=== PATIENT | male | born 1975 | race Caucasian/White ===

== ENCOUNTER 2020-08-17 13:34 | Outpatient (RCR) | payer OTHER, SELFPAY ==
[2013-05-13 21:44] VITALS: BMI 30.4
== END 2020-10-18 23:59 ==
LOC: IMMUN 13:34
PROVIDERS: PCP Internal Medicine; Visit Provider Family Medicine
DX: Z23 Encounter for immunization (principal)
CPT/HCPCS: 0001A; 0002A; 91300

== ENCOUNTER 2024-07-08 12:21 | Emergency (ER) | payer BC, SELFPAY ==
[2024-07-08] VITALS (7 sets, daily range): BP systolic 118–146; BP diastolic 76–95; PULSE 93–120; RESP 14–22; TEMP 36.6–37.1; O2SAT 95–98; BMI 29.5
--- NOTE | 2024-07-08 13:06 | EKG12_ITS ---
Test Reason : Blood Pressure : */* mmHG Vent. Rate : 109 BPM Atrial Rate : 109 BPM P-R Int : 132 ms QRS Dur : 84 ms QT Int : 322 ms P-R-T Axes : 45 38 53 degrees QTcB Int : 433 ms Sinus tachycardia Nonspecific ST abnormality Abnormal ECG Confirmed by Dmitry Baker [id number]), editor sound BAO MARQUIS ([id number]) on 07/09/2024 9:33:57 AM Referred By: Asif Galdamez Confirmed By: Dmitry Baker
--- NOTE | 2024-07-08 13:07 | EDS_ITS ---
HPI History of Present Illness Chief Complaint: Syncope Narrative Narrative: 49-year-old male who denies significant past medical history presents status post syncopal episode. He states that yesterday he felt well but this morning by 530, he started having multiple episodes of diarrhea. He is having watery stool, nonbloody, at least 5 episodes of not more according to his . He stayed home from work today, and just prior to arrival, he started feeling nauseated and was in the bathroom. He was kneeling over the toilet on the floor, and the next thing he knew he woke up and had vomited and had an episode of diarrhea as well. He denies any fevers or chills, no abdominal pain. He did sustain a laceration to the left side of his chin. He is unsure of his last tetanus immunization. He only had a syncopal episode for about 30 seconds according to his . She had heard something fall and a loud noise and realized that he had not dropped anything so she went upstairs and by the time that she had seen him in the bathroom, he was slowly awakening. He was groggy and minimally confused. He feels back to baseline now. [facility] Medical History Sciatic nerve pain Hypercholesteremia Vitamin D deficiency BPH (benign prostatic hyperplasia) Asthma Home Medications ?Medication ?Instructions ?Recorded ?Last Taken ?Type cholecalciferol (vitamin D3) 50 50 mcg PO DAILY Unknown History mcg (2,000 unit) capsule mecobalamin (vitamin B12) PO DAILY 07/08/24 Unknown Hi story rosuvastatin 10 mg tablet (Crestor) 10 mg PO DAILY Unknown History tadalafil 5 mg tablet (Cialis) 10 mg PO DAILY 07/08/24 Unknown History Allergy/AdvReac Type Severity Reaction Status Date / Time No Known Allergies Allergy Verified 07/08/24 12:27 Social History Smoking Status: Never smoker ROS ROS ED ROS Narrative Review of systems positive for nausea, vomiting, diarrhea, and 32nd syncopal episode. Denies any recent fever or chills. No abdominal pain. Denies other injury except skin laceration on chin. EXAM Physical Exam Narrative Exam Narrative: GCS 15. ABCs intact. PERRL, EOMI. Neck soft and supple without meningismus. Full range of motion without pain. Inspection of the left chin does reveal dried blood streaking of collapsed chin. Cardiovascular examination reveals a regular rate and rhythm. Lungs are clear to auscultation bilaterally. Abdomen soft and nontender with positive bowel sounds, no guarding or rebound. Neurological examination is nonfocal, nonlateralizing. He is awake, alert, and oriented x 4. Const Vital Signs: 07/08/24 12:27 07/08/24 12:35 07/08/24 12:35 Temperature 98.8 F 98.8 F Temperature Source Oral Oral Pulse Rate 93 93 Respiratory Rate 14 14 Respiratory Effort Normal Respiratory Pattern Normal Blood Pressure 123/85 H 123/85 H Blood Pressure Mean 97 97 Pulse Ox 97 97 Oxygen Delivery Method Room Air Room Air 07/08/24 13:22 07/08/24 14:03 07/08/24 15:01 Temperature Temperature Source Pulse Rate 105 H 110 H 120 H Respiratory Rate 19 H 15 21 H Respiratory Effort Respiratory Pattern Blood Pressure 127/80 H 146/95 H 124/76 H Blood Pressure Mean 95 112 92 Pulse Ox 98 97 97 Oxygen Delivery Method Room Air Room Air Room Air 07/08/24 16:30 07/08/24 16:32 Temperature 98 F Temperature Source Pulse Rate 104 H 104 H Respiratory Rate 22 H 22 H Respiratory Effort Respiratory Pattern Blood Pressure 118/79 118/79 Blood Pressure Mean 92 92 Pulse Ox 95 95 Oxygen Delivery Method MDM MDM MDM Narrative Medical decision making narrative: Differential diagnosis includes but not limited to vasovagal syncope versus intravascular volume depletion versus dehydration versus other electrolyte abnormality secondary to gastroenteritis. I do not feel he needs CT imaging of the brain, neck, or abdomen as he is having no pain. His wound will be cleansed to see if there is an underlying laceration that requires repair. Patient will be bolused normal saline 1 L intravenously. EKG will be obtained as a cause for cardiogenic syncope. I will check a CBC, CMP, and lipase as well. EKG obtained interpreted by myself independently as sinus tachycardia at 109 bpm without ectopy or acute ST changes. No STEMI. QTc normal at 433 ms. I reviewed his laboratory work and he has normal white count of 8.9 with hemoglobin 15.6, hematocrit 46.2, platelet count normal at 220. Sodium is normal at 138 potassium 4.5. BUN slightly elevated at 20 with creatinine 1.1. Glucose appropriately elevated at 135 with a normal anion gap of 11. ALT slightly elevated at 58 which I think is nonspecific. Lipase normal at 43. Patient does have a small laceration on his chin less than 1 cm. I discussed with him the risk of infection and scarring, and he would like 1 suture placed. See procedure note for detail. Additionally after suturing he states his throat was sore which may be secondary to his vomiting, but he states his throat feels thick like he has strep throat. He would like to be swabbed for strep as well as COVID, influenza, and RSV. I reviewed his swabs and they are negative for strep and for COVID, influenza and RSV. At this point he will be discharged to follow-up with his primary care provider. Return instructions reviewed. Disposition is discharged home in stable condition. History & Record Review Discussion w/independent historian: Patient and Family Lab Data Attestation: I reviewed the patient's lab results. Labs: Laboratory Results - last 24 hr 07/08/24 12:52 WBC 8.9 RBC 5.04 Hgb 15.6 Hct 46.2 MCV 91.7 MCH 31.0 MCHC 33.8 RDW Std Deviation 39.2 RDW Coeff of Suri 11.6 Plt Count 220 MPV 8.4 Immature Gran % (Auto) 0.300 Neut % (Auto) 89.4 H Lymph % (Auto) 4.2 L [place] % (Auto) 5.0 Eos % (Auto) 0.8 Baso % (Auto) 0.3 Absolute Neuts (auto) 7.9 H Absolute Lymphs (auto) 0.37 L Nucleated RBC % 0 Sodium 138 Potassium 4.5 Chloride Direct 101 Carbon Dioxide 25.6 Anion Gap 11 BUN 20 H Creatinine 1.1 Estim Creat Clear Calc 107.92 Est GFR (MDRD) Non-Af 79 BUN/Creatinine Ratio 17.4 Glucose 135 H Calcium 9.5 Total Bilirubin 0.47 AST 34 ALT 58 H Alkaline Phosphatase 68 Total Protein 7.3 Albumin 4.8 Globulin 2.5 Albumin/Globulin Ratio 1.9 Lipase 43 Procedures Lacerations Chin laceration: Length: 0.39 in Depth: Skin Shape: Linear Prep: Sterile Conditions Laceration repair: Irrigated, Lidocaine and Local Number of Sutures/[place]: 1 Suture Information: Ethilon, Simple and 5-0 Discharge Plan Triage Chief Complaint: Syncope ED Provider: Asif Galdamez Dx/Rx/DC Orders Clinical Impression: Syncope and collapse, Chin laceration, Nausea, vomiting, and diarrhea, Sore throat Instructions: ED Laceration, Chin, Suture or Tape, ED Diarrhea, Unknown Cause, ED Diet Vomiting Diarrhea, ED Fainting, Vagal Reaction Prescriptions: No Action rosuvastatin [Crestor] 10 mg tablet 10 mg PO DAILY tadalafil [Cialis] 5 mg tablet 10 mg PO DAILY Rx Instructions: administer approximately 30min before sexual activity; do not use more than 1 dose per 24hrs cholecalciferol (vitamin D3) 50 mcg (2,000 unit) capsule 50 mcg PO DAILY mecobalamin (vitamin B12) PO DAILY Primary Care Provider: Sara Babb Referrals: Sara Babb MD [Primary Care Provider] - 5 Days for suture removal Activity Restrictions/Additional Instructions: Have the sutures removed by your primary care provider in 5 days. Drink plenty of oral fluids. Return with new or worsening symptoms. Print Language: Telugu Disposition Disposition: Home, Self Care Discharge Date/Time: 07/08/24 16:39
[2024-07-08] MEDS: 0.9% Normal Saline (1000mL) 1,000 ML 1000 ML IV (13:20)
[2024-07-08 13:44] LABS: Absolute Lymphocyte Count 0.37 X10^3/uL (0.83-4.51); Absolute Neutrophil Count 7.9 X10^3/uL (2.0-7.7); Basophil# 0.03 X10^3/uL; Basophil% 0.3 % (0-1); Eosinophil# 0.07 X10^3/uL; Eosinophils% 0.8 % (0-5); Hematocrit 46.2 % (40-54); Hemoglobin 15.6 g/dL (13.0-16.5); Lymphocyte # 0.37 X10^3/ul (0.83-4.51); Lymphocyte % 4.2 % (19-41); Mean Corp Hgb Conc 33.8 g/dL (32-36); Mean Corpuscular Volume 91.7 fL (80-94); Mean Platelet Vol. 8.4 fl (6.2-12.0); Monocyte# 0.44 X10^3/uL; NRBC Flagged by Analyzer 0 % (0-5); Neutrophil # 7.92 X10^3/uL (2.7-7.7); Neutrophil % 89.4 % (47-70); POSITIVE DIFFERENTIAL YES; Platelet Count 220 K/mm3 (150-450); RBC Distribution Width CV 11.6 % (11.6-14.6); RBC Distribution Width SD 39.2 fl (35.1-43.9); Red Blood Count 5.04 M/mm3 (4.6-6.2); White Blood Count 8.9 K/mm3 (4.4-11.0)
[2024-07-08 14:17] LABS: ALB/GLOB Ratio 1.9 RATIO (0.9-2.4); AST(SGOT) 34 U/L (<=37); Alanine Aminotransfer ALT/SGPT 58 U/L (<=46); Albumin, Serum 4.8 g/dL (3.5-5.0); Alkaline Phosphatase 68 U/L (40-129); Anion Gap 11 (5-15); BUN 20 mg/dL (4-19); BUN/Creat Ratio 17.4 RATIO (10-20); Calcium 9.5 mg/dL (7.6-11.0); Carbon Dioxide 25.6 mmol/L (22.0-29.0); Chloride 101 mmol/L (96-108); Creatinine, Serum 1.1 mg/dL (0.8-1.3); EST Glomerular Filtration Rate 79 (>60); Estimated Creatinine Clearance 107.92 ml/min; Globulin 2.5 g/dL (2.2-4.2); Glucose 135 mg/dL (70-99); Lipase 43 U/L (13-75); Potassium 4.5 mmol/L (3.3-5.1); Protein, Total 7.3 g/dL (5.9-8.4); Sodium Level 138 mmol/L (133-145); Total Bilirubin 0.47 mg/dL (0.00-1.30)
[2024-07-08] MEDS: Lidocaine 1% (20 ml mdv) 20 ML Vial INFILT (14:35)
== END 2024-07-08 16:39 | disposition home or self-care (01) ==
PROVIDERS: Emergency Provider Emergency Medicine; PCP Internal Medicine; Referring Provider Emergency Medicine; Visit Provider Emergency Medicine
DX: R55 Syncope and collapse (principal); J02.9 Acute pharyngitis, unspecified; R19.7 Diarrhea, unspecified; S01.81XA Laceration without foreign body of other part of head, initial encounter; W19.XXXA Unspecified fall, initial encounter; R41.0 Disorientation, unspecified; R11.2 Nausea with vomiting, unspecified; E78.00 Pure hypercholesterolemia, unspecified
CPT/HCPCS: 12011; 80053; 83690; 85025; 87631; 87651; 90715; 93005; 96360; 99285; A4216

== ENCOUNTER → 2025-03-12 | Outpatient (CLI) | payer BC, SELFPAY ==
[2025-03-12 12:08] LABS: Red Blood Cells-Urine 0 SEEN /hpf (0-5); Squamous Epithelial Cells - UA 0 SEEN /hpf (0-5)
[2025-03-12 12:24] LABS: Hematocrit 45.7 % (40-54); Hemoglobin 15.3 g/dL (13.0-16.5); Immature Granulocytes Count 0.010 X10^3/uL (0.0-0.0); Mean Corp Hgb Conc 33.5 g/dL (32-36); Mean Corpuscular Volume 94.2 fL (80-94); Mean Platelet Vol. 8.8 fl (6.2-12.0); NRBC Flagged by Analyzer 0 % (0-5); Platelet Count 286 K/mm3 (150-450); RBC Distribution Width CV 11.4 % (11.6-14.6); RBC Distribution Width SD 39.4 fl (35.1-43.9); Red Blood Count 4.85 M/mm3 (4.6-6.2); White Blood Count 4.1 K/mm3 (4.4-11.0)
[2025-03-12 12:36] LABS: Color, Urine Yellow (Yellow); Glucose, Dipstick Normal (Normal); Ketone-Dipstick 5 mg/dl (Negative); Leukocyte Esterase-Dipstick Negative /ul (Negative); Nitrite-Dipstick Negative (Negative); Occult Blood-Urine Negative /ul (Negative); Protein-Dipstick 30 mg/dl (Negative); Specific Gravity, Urine 1.025 (1.002-1.030); Urine Bilirubin Dipstick Negative (Negative)
[2025-03-12 12:45] LABS: Mucous, Urine 2+ /hpf (<or=2+)
[2025-03-12 13:01] LABS: AST(SGOT) 33 U/L (<=37); Alanine Aminotransfer ALT/SGPT 54 U/L (<=46); Albumin, Serum 4.9 g/dL (3.5-5.0); Alkaline Phosphatase 74 U/L (40-129); Anion Gap 10 (5-15); BUN 23 mg/dL (4-19); BUN/Creat Ratio 21.4 RATIO (10-20); Calcium,Total 10.0 mg/dL (7.6-11.0); Carbon Dioxide 28.2 mmol/L (21.0-32.0); Chloride 103 mmol/L (98-108); Globulin 2.5 g/dL (2.2-4.2); Glucose 100 mg/dL (70-99); Potassium 5.0 mmol/L (3.3-5.1)
[2025-03-12 18:04] LABS: Creatinine, Urine (random) 408.00 mg/dL (39.00-259.00); Microalbumin,Random Urine 13.8 mg/L (<20 mg/L)
== END | disposition home or self-care (01) ==
LOC: LAB 11:57 → LABSPEC 11:58
PROVIDERS: PCP Internal Medicine; Referring Provider Internal Medicine; Visit Provider Internal Medicine
DX: R37 Sexual dysfunction, unspecified (principal); R79.89 Other specified abnormal findings of blood chemistry; E78.00 Pure hypercholesterolemia, unspecified
CPT/HCPCS: 80053; 81001; 82043; 82570; 85025

== ENCOUNTER → 2025-03-19 | Outpatient (CLI) | payer BC, SELFPAY ==
[2025-03-19 10:05] LABS: Hematocrit 43.2 % (40-54); Hemoglobin 15.1 g/dL (13.0-16.5); Immature Granulocytes Count 0.000 X10^3/uL (0.0-0.0); Mean Corp Hgb Conc 35.0 g/dL (32-36); Mean Corpuscular Volume 91.9 fL (80-94); Mean Platelet Vol. 8.7 fl (6.2-12.0); NRBC Flagged by Analyzer 0 % (0-5); Platelet Count 249 K/mm3 (150-450); RBC Distribution Width CV 11.5 % (11.6-14.6); RBC Distribution Width SD 38.8 fl (35.1-43.9); Red Blood Count 4.70 M/mm3 (4.6-6.2)
[2025-03-19 10:38] LABS: AST(SGOT) 32 U/L (<=37); Alanine Aminotransfer ALT/SGPT 46 U/L (<=46); Albumin, Serum 4.8 g/dL (3.5-5.0); Alkaline Phosphatase 70 U/L (40-129); Bilirubin, Direct 0.20 mg/dL (0.00-0.30); Follicle Stimulating Hormone 3.1 mIU/mL; Globulin 2.7 g/dL (2.2-4.2)
[2025-03-19 13:17] LABS: White Blood Count 3.6 K/mm3 (4.4-11.0)
== END | disposition home or self-care (01) ==
LOC: CIMLAB 09:02
PROVIDERS: PCP Internal Medicine; Referring Provider Internal Medicine; Visit Provider Internal Medicine
DX: E78.00 Pure hypercholesterolemia, unspecified (principal); R79.89 Other specified abnormal findings of blood chemistry; R37 Sexual dysfunction, unspecified
CPT/HCPCS: 36415; 80076; 83001; 83002; 84402; 85025

== ENCOUNTER → 2025-04-02 | Outpatient (CLI) | payer BC, SELFPAY ==
[2025-04-02 17:41] LABS: Hematocrit 43.9 % (40-54); Hemoglobin 14.9 g/dL (13.0-16.5); Immature Granulocytes Count 0.000 X10^3/uL (0.0-0.0); Mean Corp Hgb Conc 33.9 g/dL (32-36); Mean Corpuscular Volume 93.4 fL (80-94); Mean Platelet Vol. 8.7 fl (6.2-12.0); NRBC Flagged by Analyzer 0 % (0-5); Platelet Count 233 K/mm3 (150-450); RBC Distribution Width CV 11.4 % (11.6-14.6); RBC Distribution Width SD 39.1 fl (35.1-43.9); Red Blood Count 4.70 M/mm3 (4.6-6.2); White Blood Count 4.1 K/mm3 (4.4-11.0)
== END | disposition home or self-care (01) ==
LOC: LABSPEC 15:15
PROVIDERS: PCP Internal Medicine; Referring Provider Internal Medicine; Visit Provider Internal Medicine
DX: R79.89 Other specified abnormal findings of blood chemistry (principal)
CPT/HCPCS: 85025

== ENCOUNTER → 2025-04-09 | Outpatient (CLI) | payer BC, SELFPAY ==
--- OUTSIDE RECORDS SUMMARY | 2025-04-09 11:20 | XMS RPT_ITS | CCD ---
Author Organization [facility] Inform ion Partnership [facility] Care Team Providers Care [employer] Attorney Name Role Phone Sara Paniagua Unavailable Cold Strip Feeder, System Unavailable Unavailable MATTHEW Prince Unavailable Unavailable Holley MITCHELL, Sara Clark Primary Care Provider SARA PANIAGUA Referring Unavailable BONEZZI, SARA CLARK Primary Care Unavailable Bonezzi, Sara Primary Care Unavailable Reodica, Asif Referring Unavailable Reodica, Asif Attending Unavailable Bonezzi, Sara Attending Unavailable Bonezzi, Sara Primary Care Unavailable Bonezzi, Sara Referring Unavailable Bonezzi, Sara Primary Care Unavailable Bonezzi, Sara Referring Unavailable Bonezzi, Sara Attending Unavailable Allergies Allergy Classification Reported Allergen(s) Allergy Type Date of Onset Reaction(s) Facility (1 source) ALLERGIES NOT ON FILE; Translations: [ALLERGIES NOT ON FILE] Propensity to adverse reactions (disorder) [facility] 2 Repository Problems Active Problems Problem Classification Problem Date Documented Da te Episodic/Chronic Asthma (2 sources) Intrinsic asthma with status asthmaticus; Translations: [Asthma] 07-30-2006 Chronic Comment on above: child Diabetes mellitus without complication (1 source) Impaired fasting glucose; Translations: [Impaired fasting glucose] Onset: 03-12-2025 Episodic Disorders of lipid metabolism (9 sources) Hypercholesterolemi a; Translations: [Hypercholesteremia ] Onset: 08-26-2023 02-15-2015 Chronic Comment on above: want at goal Immunizations and screening for infectious disease (3 sources) Contact with and (suspected) exposure to other viral communicable diseases; Translations: [Exposure to the flu] 02-26-2020 Episodic Miscellaneous mental health disorders (1 source) Sexual dysfunction, unspecified; Translations: [Sexual dysfunction, unspecified] Onset: 03-19-2025 Episodic Other circulatory disease (1 source) Elevated blood-pressure reading, without diagnosis of hypertension; Translations: [Elevated blood-pressure reading, without diagnosis of hypertension] Onset: 03-12-2025 Episodic Other screening for suspected conditions (not mental disorders or infectious disease) (1 source) Other specified abnormal findings of blood chemistry; Translations: [Other specified abnormal findings of blood chemistry] Onset: 03-19-2025 Episodic Past or Other Problems Problem Classification Problem Date Documented Date Episodic/Chronic Influenza (1 source) Influenza Syncope (1 source) Syncope and collapse; Translations: [Syncope and collapse] Onset: Episodic Unclassified (4 sources) Unclassified (1 source) Patient encounter status; Translations: [Encounter for routine history and physical exam for male] 02-15-2015 Comment on above: handout for self kimberly t. exam Unclassified (2 sources) Hypercholesteremia (272.0) Unclassified (2 sources) Well Male Exam (V70.0) Results Test Name Value Interpretation Reference Range Facility Testosterone Freeon 03-21-20 TESTOSTER FREE 11.0 pg/mL Normal 7.2-24.0 [facility] Comment on above: Result Comment: Perf ormed at: - [facility] [id number] Spiral Winder: Marcin Chery MD, Phone: [phone] Performed By: #### L 100.0100, L501.2450, L500.4050 #### [facility] [address] [place], [place], [address] CBC W/Diff, Automatedon 11-0 PATH REV Reviewed Normal [facility] Comment on above: Order Comment: ADD ONDR. PANIAGUA WANTS THE WBC RECHECKED, SPECIMEN IS IN THE LAB Result Comment: LEUK OPENIA WITH ABSOLUTE NEUTROPENIA AND RELATIVE LYMPHOCYTOSIS. NO SIGNIFICANT CYTOLOGIC ATYPIA NOTED. NORMAL RED BLOOD CELLS. ADEQUATE PLATELETS. Yeimi Hilmlan MD 03/19/2025 AMENDED REPORT 03/19/25 1418 PATH REV previously reported as: September Performed By: #### L 100.0100, L501.2450, L500.4050 #### [facility] [address] [place], [address] FSH and LHon 03-19-2025 FSH 3.1 mIU/mL Normal [facility] Comment on above: Result Comment: FEMA LE: Follicular: 1.4 - 18.1 mIU/mL Midcycle: 3.4 - 33.4 mIU/mL Luteal: 1.5 - 9.1 mIU/mL Post Menopause: 23.0 - 116.3 mIU/mL MALE: 1.4 - 18.1 mIU/mL Performed By: #### L 100.0100, L501.2450, L500.4050 #### [facility] [address] [place], [place], [id number] LH 4.8 mIU/mL Normal [facility] Comment on above: Result Comment: FEMA LE: Follicular: 1.9-12.5 mIU/mL Midcycle: 8.7-76.3 mIU/mL Luteal: 0.5-16.9 mIU/mL Post Menopause: 15.9-54.0 mIU/mL MALE: 20-70 Years: 1.5-9.3 mIU/mL >70 Years: 3.1-34.6 mIU/mL Performed By: #### L 100.0100, L501.2450, L500.4050 #### [facility] [address] [place], [address] Liver Profileon 03-19-2025 Albumin [Mass/Vol] 4.8 g/dL Normal 3.5-5.0 [facility] Comment on above: Performed By: #### L 100.0100, L501.2450, L500.4050 #### [facility] [address] [place], [address] ALK PHOS 70 U/L Normal 40-129 [facility] Comment on above: Performed By: #### L 100.0100, L501.2450, L500.4050 #### [facility] [address] [place], [address] ALT [Catalytic activity/Vol] 46 U/L Normal <=46 [facility] Comment on above: Performed By: #### L 100.0100, L501.2450, L500.4050 #### [facility] [address] [place], [address] AST [Catalytic activity/Vol] 32 U/L Normal <=37 [facility] Comment on above: Performed By: #### L 100.0100, L501.2450, L500.4050 #### [facility] [address] [place], [address] Bilirubin [Mass/Vol] 0.44 mg/dL Normal 0.00-1.30 [facility] Comment on above: Performed By: #### L 100.0100, L501.2450, L500.4050 #### [facility] [address] [place], [address] Bilirubin.direct [Mass/Vol] 0.20 mg/dL Normal 0.00-0.30 [facility] Comment on above: Performed By: #### L 100.0100, L501.2450, L500.4050 #### [facility] [address] [place], [address] Globulin (S) [Mass/Vol] 2.7 g/dL Normal 2.2-4.2 [facility] Comment on above: Performed By: #### L 100.0100, L501.2450, L500.4050 #### [facility] [address] [place], [address] T PROT 7.5 g/dL Normal 5.9-8.4 [facility] Comment on above: Performed By: #### L 100.0100, L501.2450, L500.4050 #### [facility] [address] [place], [address] CBC W/Diff, Automatedon 10-3 -2024 Absolute Lymph 1.97 X10 3/uL Normal 0.83-4.51 [facility] Comment on above: Performed By: #### L 100.0100, L400.0001, L502.0250, L500.4050 #### [facility] [address] [place], [address] Absolute Neut 1.6 X10 3/uL Low 2.0-7.7 [facility] Comment on above: Performed By: #### L 100.0100, L400.0001, L502.0250, L500.4050 #### [facility] [address] [place], [address] Basophils/100 WBC (Bld) 0.7 % Normal 0-1 [facility] Comment on above: Performed By: #### L 100.0100, L400.0001, L502.0250, L500.4050 #### [facility] [address] [place], [address] Eosinophils/100 WBC (Bld) 3.4 % Normal 0-5 [facility] Comment on above: Performed By: #### L 100.0100, L400.0001, L502.0250, L500.4050 #### [facility] [address] [place], [address] Erythrocyte distribution width (RBC) [Ratio] 11.4 % Low 11.6-14.6 [facility] Comment on above: Performed By: #### L 100.0100, L400.0001, L502.0250, L500.4050 #### [facility] [address] [place], [address] Hematocrit (Bld) [Volume fraction] 45.7 % Normal 40-54 [facility] Comment on above: Performed By: #### L 100.0100, L400.0001, L502.0250, L500.4050 #### [facility] [address] [place], [address] Hemoglobin (Bld) [Mass/Vol] 15.3 g/dL Normal 13.0-16.5 [facility] Comment on above: Performed By: #### L 100.0100, L400.0001, L502.0250, L500.4050 #### [facility] [address] [place], [address] IG% 0.200 Normal 0.0-0.9 [facility] Comment on above: Result Comment: IG% - Immature Granulocytes (promyelocytes, myelocytes and metamyelocytes) > 1% indicates that a LEFT SHIFT is Present. Performed By: #### L 100.0100, L400.0001, L502.0250, L500.4050 #### [facility] [address] [place], [address] Lymphocytes/100 WBC (Bld) 47.9 % High 19-41 [facility] Comment on above: Performed By: #### L 100.0100, L400.0001, L502.0250, L500.4050 #### [facility] [address] [place], [address] MCH (RBC) [Entitic mass] 31.5 pg Normal 27.0-32.0 [facility] Comment on above: Performed By: #### L 100.0100, L400.0001, L502.0250, L500.4050 #### [facility] [address] [place], [address] MCHC (RBC) [Mass/Vol] 33.5 g/dL Normal 32-36 [facility] Comment on above: Performed By: #### L 100.0100, L400.0001, L502.0250, L500.4050 #### [facility] [address] [place], [address] MCV (RBC) [Entitic vol] 94.2 fL High 80-94 [facility] Comment on above: Performed By: #### L 100.0100, L400.0001, L502.0250, L500.4050 #### [facility] [address] [place], [address] Monocytes/100 WBC (Bld) 8.8 % Normal 0-10 [facility] Comment on above: Performed By: #### L 100.0100, L400.0001, L502.0250, L500.4050 #### [facility] [address] [place], [address] Neutrophils/100 WBC (Bld) 39.0 % Low 47-70 [facility] Comment on above: Performed By: #### L 100.0100, L400.0001, L502.0250, L500.4050 #### [facility] [address] [place], [address] Nucleated RBC (Bld) [#/Vol] 0 10*3/uL Normal 0-5 [facility] Comment on above: Performed By: #### L 100.0100, L400.0001, L502.0250, L500.4050 #### [facility] [address] [place], [address] Platelet mean volume (Bld) [Entitic vol] 8.8 fL Normal 6.2-12.0 [facility] Comment on above: Performed By: #### L 100.0100, L400.0001, L502.0250, L500.4050 #### [facility] [address] [place], [address] Platelets (Bld) [#/Vol] 286 10*3/uL Normal 150-450 [facility] Comment on above: Performed By: #### L 100.0100, L400.0001, L502.0250, L500.4050 #### [facility] [address] [place], [address] RBC (Bld) [#/Vol] 4.85 10*6/uL Normal 4.6-6.2 [facility] Comment on above: Performed By: #### L 100.0100, L400.0001, L502.0250, L500.4050 #### [facility] [address] [place], [address] RDW SD 39.4 fl Normal 35.1-43.9 [facility] Comment on above: Performed By: #### L 100.0100, L400.0001, L502.0250, L500.4050 #### [facility] [address] [place], [address] WBC (Bld) [#/Vol] 4.1 10*3/uL Low 4.4-11.0 [facility] Comment on above: Performed By: #### L 100.0100, L400.0001, L502.0250, L500.4050 #### [facility] [address] [place], [address] Comprehensive Metabolic Prof [facility] 03-12-2025 Albumin [Mass/Vol] 4.9 g/dL Normal 3.5-5.0 [facility] Comment on above: Performed By: #### L 100.0100, L400.0001, L502.0250, L500.4050 #### [facility] [address] [place], [address] Albumin/Globulin [Mass ratio] 2.0 {ratio} Normal 0.9-2.4 [facility] Comment on above: Performed By: #### L 100.0100, L400.0001, L502.0250, L500.4050 #### [facility] [address] [place], [address] ALK PHOS 74 U/L Normal 40-129 [facility] Comment on above: Performed By: #### L 100.0100, L400.0001, L502.0250, L500.4050 #### [facility] [address] [place], [address] ALT [Catalytic activity/Vol] 54 U/L High <=46 [facility] Comment on above: Performed By: #### L 100.0100, L400.0001, L502.0250, L500.4050 #### [facility] [address] [place], [address] AST [Catalytic activity/Vol] 33 U/L Normal <=37 [facility] Comment on above: Performed By: #### L 100.0100, L400.0001, L502.0250, L500.4050 #### [facility] [address] [place], [address] Bilirubin [Mass/Vol] 0.45 mg/dL Normal 0.00-1.30 [facility] Comment on above: Performed By: #### L 100.0100, L400.0001, L502.0250, L500.4050 #### [facility] [address] [place], [address] BUN/CRE 21.4 RATIO High 10-20 [facility] Comment on above: Performed By: #### L 100.0100, L400.0001, L502.0250, L500.4050 #### [facility] [address] [place], [address] Calcium [Mass/Vol] 10.0 mg/dL Normal 7.6-11.0 [facility] Comment on above: Performed By: #### L 100.0100, L400.0001, L502.0250, L500.4050 #### [facility] [address] [place], [address] Chloride [Moles/Vol] 103 mmol/L Normal 98-108 [facility] Comment on above: Performed By: #### L 100.0100, L400.0001, L502.0250, L500.4050 #### [facility] [address] [place], [address] CO2 [Moles/Vol] 28.2 mmol/L Normal 21.0-32.0 [facility] Comment on above: Performed By: #### L 100.0100, L400.0001, L502.0250, L500.4050 #### [facility] [address] [place], [address] Creatinine [Mass/Vol] 1.05 mg/dL Normal 0.70-1.20 [facility] Comment on above: Performed By: #### L 100.0100, L400.0001, L502.0250, L500.4050 #### [facility] [address] [place], [address] GAP 10 Normal 5-15 [facility] Comment on above: Performed By: #### L 100.0100, L400.0001, L502.0250, L500.4050 #### [facility] [address] [place], [address] GFR/1.73 sq M.predicted among non-blacks MDRD (S/P/Bld) [Vol rate/Area] 86 mL/min/{1.73_m2} Normal >60 [facility] Comment on above: Result Comment: mL/m in/1.73m2 CKD-EPI Creatinine Equation (2020) Performed By: #### L 100.0100, L400.0001, L502.0250, L500.4050 #### [facility] [address] [place], [address] Globulin (S) [Mass/Vol] 2.5 g/dL Normal 2.2-4.2 [facility] Comment on above: Performed By: #### L 100.0100, L400.0001, L502.0250, L500.4050 #### [facility] [address] [place], [address] Glucose [Mass/Vol] 100 mg/dL High 70-99 [facility] Comment on above: Performed By: #### L 100.0100, L400.0001, L502.0250, L500.4050 #### [facility] [address] [place], [address] Potassium [Moles/Vol] 5.0 mmol/L Normal 3.3-5.1 [facility] Comment on above: Performed By: #### L 100.0100, L400.0001, L502.0250, L500.4050 #### [facility] [address] [place], [address] Sodium [Moles/Vol] 141 mmol/L Normal 133-145 [facility] Comment on above: Performed By: #### L 100.0100, L400.0001, L502.0250, L500.4050 #### [facility] [address] [place], [address] T PROT 7.4 g/dL Normal 5.9-8.4 [facility] Comment on above: Performed By: #### L 100.0100, L400.0001, L502.0250, L500.4050 #### [facility] [address] [place], [address] Urea nitrogen [Mass/Vol] 23 mg/dL High 4-19 [facility] Comment on above: Performed By: #### L 100.0100, L400.0001, L502.0250, L500.4050 #### [facility] [address] [place], [address] Microalb:Creat Ratio,Random URon 03-12-2025 Creatinine [Mass/Vol] 408.00 mg/dL High 39.00-259.0 0 [facility] Comment on above: Performed By: #### L 100.0100, L501.2450, L500.4050 #### [facility] [address] [place], [address] MALB:CREAT 3.4 mg/g CRE Normal <30 mg/g CRE [facility] Comment on above: Performed By: #### L 100.0100, L501.2450, L500.4050 #### [facility] [address] [place], [address] MICROALBUMIN,UR 13.8 mg/L Normal <20 mg/L [facility] Comment on above: Performed By: #### L 100.0100, L501.2450, L500.4050 #### [facility] [address] [place], [address] Urinalysis, Completeon 03-12 Mucus Ql (Urine sed) 2+ /hpf Normal [facility] Comment on above: Order Comment: Urine , Random Performed By: #### L 100.0100, L400.0001, L502.0250, L500.4050 #### [facility] [address] [place], [address] BACTERIA 0 SEEN Normal None Seen [facility] Comment on above: Order Comment: Urine , Random Performed By: #### L 100.0100, L400.0001, L502.0250, L500.4050 #### [facility] [address] [place], [address] EPI,SQUAMOUS 0 SEEN Normal 0-5 [facility] Comment on above: Order Comment: Urine , Random Performed By: #### L 100.0100, L400.0001, L502.0250, L500.4050 #### [facility] [address] [place], [address] RBC 0 SEEN Normal 0-5 [facility] Comment on above: Order Comment: Urine , Random Performed By: #### L 100.0100, L400.0001, L502.0250, L500.4050 #### [facility] [address] [place], [address] WBC 0 SEEN Normal 0-5 [facility] Comment on above: Order Comment: Urine , Random Performed By: #### L 100.0100, L400.0001, L502.0250, L500.4050 #### [facility] [address] [place], [address] 12 Lead EKGon 2024 [address] [facility] [address] [facility] [place] [address] 12 Lead EKG 07/08/24 1316 MR#: [id number] Acct: [id number] Name: MARY VALENCIA Rep #: [id number] : 1975 49 From: Dmitry Baker MD Attending Dr: Status: DEP ER Ordering Dr: Asif Galdamez MD Date: 07/08/24 Location: ED Sex: M C Admitted: Test Reason : Blood Pressure : */* mmHG Vent. Rate : 109 BPM Atrial Rate : 109 BPM P-R Int : 132 ms QRS Dur : 84 ms QT Int : 322 ms P-R-T Axes : 45 38 53 degrees QTcB Int : 433 ms Sinus tachycardia Nonspecific ST abnormality Abnormal ECG Confirmed by Dmitry Baker ([id number]), managing editor BAO MARQUIS ([id number]) on 07/09/2024 9:33:57 AM Referred By: Asif Galdamez Confirmed By: Dmitry Baker 07/09/24 0933 Date Dmitry Baker MD CC: Dr. Asif Galdamez MD; Dr. Sara Paniagua MD Signed Normal [facility] CBC W/Diff, Automatedon 02-2 Absolute Lymph 0.37 X10 3/uL Low 0.83-4.51 [facility] Comment on above: Performed By: #### L 100.0100, L501.2450, L500.4050 #### [facility] [address] [place], [address] Absolute Neut 7.9 X10 3/uL High 2.0-7.7 [facility] Comment on above: Performed By: #### L 100.0100, L501.2450, L500.4050 #### [facility] [address] [place], [address] Basophils/100 WBC (Bld) 0.3 % Normal 0-1 [facility] Comment on above: Performed By: #### L 100.0100, L501.2450, L500.4050 #### [facility] [address] [place], [address] Eosinophils/100 WBC (Bld) 0.8 % Normal 0-5 [facility] Comment on above: Performed By: #### L 100.0100, L501.2450, L500.4050 #### [facility] [address] [place], [address] Erythrocyte distribution width (RBC) [Ratio] 11.6 % Normal 11.6-14.6 [facility] Comment on above: Performed By: #### L 100.0100, L501.2450, L500.4050 #### [facility] [address] [place], [address] Hematocrit (Bld) [Volume fraction] 46.2 % Normal 40-54 [facility] Comment on above: Performed By: #### L 100.0100, L501.2450, L500.4050 #### [facility] [address] [place], [address] Hemoglobin (Bld) [Mass/Vol] 15.6 g/dL Normal 13.0-16.5 [facility] Comment on above: Performed By: #### L 100.0100, L501.2450, L500.4050 #### [facility] [address] [place], [address] IG% 0.300 Normal 0.0-0.9 [facility] Comment on above: Result Comment: IG% - Immature Granulocytes (promyelocytes, myelocytes and metamyelocytes) > 1% indicates that a LEFT SHIFT is Present. Performed By: #### L 100.0100, L501.2450, L500.4050 #### [facility] [address] [place], [address] Lymphocytes/100 WBC (Bld) 4.2 % Low 19-41 [facility] Comment on above: Performed By: #### L 100.0100, L501.2450, L500.4050 #### [facility] [address] [place], [address] MCH (RBC) [Entitic mass] 31.0 pg Normal 27.0-32.0 [facility] Comment on above: Performed By: #### L 100.0100, L501.2450, L500.4050 #### [facility] [address] [place], [address] MCHC (RBC) [Mass/Vol] 33.8 g/dL Normal 32-36 [facility] Comment on above: Performed By: #### L 100.0100, L501.2450, L500.4050 #### [facility] [address] [place], [address] MCV (RBC) [Entitic vol] 91.7 fL Normal 80-94 [facility] Comment on above: Performed By: #### L 100.0100, L501.2450, L500.4050 #### [facility] [address] [place], [address] Monocytes/100 WBC (Bld) 5.0 % Normal 0-10 [facility] Comment on above: Performed By: #### L 100.0100, L501.2450, L500.4050 #### [facility] [address] [place], [address] Neutrophils/100 WBC (Bld) 89.4 % High 47-70 [facility] Comment on above: Performed By: #### L 100.0100, L501.2450, L500.4050 #### [facility] [address] [place], [address] Nucleated RBC (Bld) [#/Vol] 0 10*3/uL Normal 0-5 [facility] Comment on above: Performed By: #### L 100.0100, L501.2450, L500.4050 #### [facility] [address] [place], [address] Platelet mean volume (Bld) [Entitic vol] 8.4 fL Normal 6.2-12.0 [facility] [facility] Comment on above: Performed By: #### L 100.0100, L501.2450, L500.4050 #### [facility] [address] [place], [address] Platelets (Bld) [#/Vol] 220 10*3/uL Normal 150-450 [facility] Comment on above: Performed By: #### L 100.0100, L501.2450, L500.4050 #### [facility] [address] [place], [address] RBC (Bld) [#/Vol] 5.04 10*6/uL Normal 4.6-6.2 [facility] Comment on above: Performed By: #### L 100.0100, L501.2450, L500.4050 #### [facility] [address] [place], [address] RDW SD 39.2 fl Normal 35.1-43.9 [facility] Comment on above: Performed By: #### L 100.0100, L501.2450, L500.4050 #### [facility] [address] [place], [address] WBC (Bld) [#/Vol] 8.9 10*3/uL Normal 4.4-11.0 [facility] Comment on above: Performed By: #### L 100.0100, L501.2450, L500.4050 #### [facility] [address] [place], [address] Comprehensive Metabolic Prof ilon 2024 Albumin [Mass/Vol] 4.8 g/dL Normal 3.5-5.0 [facility] Comment on above: Performed By: #### L 100.0100, L501.2450, L500.4050 #### [facility] [address] [place], [address] Albumin/Globulin [Mass ratio] 1.9 {ratio} Normal 0.9-2.4 [facility] Comment on above: Performed By: #### L 100.0100, L501.2450, L500.4050 #### [facility] [address] [place], [address] ALK PHOS 68 U/L Normal 40-129 [facility] Comment on above: Performed By: #### L 100.0100, L501.2450, L500.4050 #### [facility] [address] [place], [address] ALT [Catalytic activity/Vol] 58 U/L High <=46 [facility] Comment on above: Performed By: #### L 100.0100, L501.2450, L500.4050 #### [facility] [address] [place], [address] Anion gap [Moles/Vol] 11 mmol/L Normal 5-15 [facility] Comment on above: Performed By: #### L 100.0100, L501.2450, L500.4050 #### [facility] [address] [place], [address] AST [Catalytic activity/Vol] 34 U/L Normal <=37 [facility] Comment on above: Performed By: #### L 100.0100, L501.2450, L500.4050 #### [facility] [address] [place], [address] Bilirubin [Mass/Vol] 0.47 mg/dL Normal 0.00-1.30 [facility] Comment on above: Performed By: #### L 100.0100, L501.2450, L500.4050 #### [facility] [address] [place], [address] BUN/CRE 17.4 RATIO Normal 10-20 [facility] Comment on above: Performed By: #### L 100.0100, L501.2450, L500.4050 #### [facility] [address] [place], [address] Calcium [Mass/Vol] 9.5 mg/dL Normal 7.6-11.0 [facility] Comment on above: Performed By: #### L 100.0100, L501.2450, L500.4050 #### [facility] [address] [place], [address] Chloride [Moles/Vol] 101 mmol/L Normal 96-108 [facility] Comment on above: Performed By: #### L 100.0100, L501.2450, L500.4050 #### [facility] [address] [place], [address] CO2 [Moles/Vol] 25.6 mmol/L Normal 22.0-29.0 [facility] Comment on above: Performed By: #### L 100.0100, L501.2450, L500.4050 #### [facility] [address] [place], [address] Creatinine [Mass/Vol] 1.1 mg/dL Normal 0.8-1.3 [facility] Comment on above: Performed By: #### L 100.0100, L501.2450, L500.4050 #### [facility] [address] [place], [address] ECRCL 107.92 ml/min Normal [facility] Comment on above: Performed By: #### L 100.0100, L501.2450, L500.4050 #### [facility] [address] [place], [address] GFR/1.73 sq M.predicted among non-blacks MDRD (S/P/Bld) [Vol rate/Area] 79 mL/min/{1.73_m2} Normal >60 [facility] Comment on above: Result Comment: mL/m in/1.73m2 CKD-EPI Creatinine Equation (2020) Performed By: #### L 100.0100, L501.2450, L500.4050 #### [facility] [address] [place], [address] Globulin (S) [Mass/Vol] 2.5 g/dL Normal 2.2-4.2 [facility] Comment on above: Performed By: #### L 100.0100, L501.2450, L500.4050 #### [facility] [address] [place], [address] Glucose [Mass/Vol] 135 mg/dL High 70-99 [facility] Comment on above: Performed By: #### L 100.0100, L501.2450, L500.4050 #### [facility] [address] [place], [address] Potassium [Moles/Vol] 4.5 mmol/L Normal 3.3-5.1 [facility] Comment on above: Performed By: #### L 100.0100, L501.2450, L500.4050 #### [facility] [address] [place], [address] Sodium [Moles/Vol] 138 mmol/L Normal 133-145 [facility] Comment on above: Performed By: #### L 100.0100, L501.2450, L500.4050 #### [facility] [address] [place], [address] T PROT 7.3 g/dL Normal 5.9-8.4 [facility] Comment on above: Performed By: #### L 100.0100, L501.2450, L500.4050 #### [facility] [address] [place], [address] Urea nitrogen [Mass/Vol] 20 mg/dL High 4-19 [facility] Comment on above: Performed By: #### L 100.0100, L501.2450, L500.4050 #### [facility] [address] [place], [address] Emergency Department Summary on 2024 Emergency Department Summary [facility] Medical Records Department [address] [place] [address] Emergency Department Summary 07/08/24 MR#: [id number] Acct: [id number] Name: MARY VALENCIA Rep #: [id number] : 1975 49 From: Asif Galdamez MD PCP: Dr. Sara Paniagua MD Status:DEP ER Location: ED HPI History of Present Illness Chief Complaint: Syncope Narrative Narrative: 49-year-old male who denies significant past medical history presents status post syncopal episode. He states that yesterday he felt well but this morning by 530, he started having multiple episodes of diarrhea. He is having watery stool, nonbloody, at least 5 episodes of not more according to his . He stayed home from work today, and just prior to arrival, he started feeling nauseated and was in the bathroom. He was kneeling over the toilet on the floor, and the next thing he knew he woke up and had vomited and had an episode of diarrhea as well. He denies any fevers or chills, no abdominal pain. He did sustain a laceration to the left side of his chin. He is unsure of his last tetanus immunization. He only had a syncopal episode for about 30 seconds according to his . She had heard something fall and a loud noise and realized that he had not dropped anything so she went upstairs and by the time that she had seen him in the bathroom, he was slowly awakening. He was groggy and minimally confused. He feels back to baseline now. [facility] Medical History Sciatic nerve pain Hypercholesteremia Vitamin D deficiency BPH (benign prostatic hyperplasia) Asthma Home Medications ???Medication ???Instructions ???Recorded ???Last Taken ???Type cholecalciferol (vitamin D3) 50 50 mcg PO DAILY 07/08/24 Unknown H istory mcg (2,000 unit) capsule mecobalamin (vitamin B12) PO DAILY 07/08/24 Unknown History rosuvastatin 10 mg tablet (Crestor) 10 mg PO DAILY 07/08/24 Unknown History tadalafil 5 mg tablet (Cialis) 10 mg PO DAILY 07/08/24 Unknown Hi story Allergy/AdvReac Type Severity Reaction Status Date / Time No Known Allergies Allergy Verified 07/08/24 12:27 Social History Smoking Status: Never smoker ROS ROS ED ROS Narrative Review of systems positive for nausea, vomiting, diarrhea, and 32nd syncopal episode. Denies any recent fever or chills. No abdominal pain. Denies other injury except skin laceration on chin. EXAM Physical Exam Narrative Exam Narrative: GCS 15. ABCs intact. PERRL, EOMI. Neck soft and supple without meningismus. Full range of motion without pain. Inspection of the left chin does reveal dried blood streaking of collapsed chin. Cardiovascular examination reveals a regular rate and rhythm. Lungs are clear to auscultation bilaterally. Abdomen soft and nontender with positive bowel sounds, no guarding or rebound. Neurological examination is nonfocal, nonlateralizing. He is awake, alert, and oriented x 4. Const Vital Signs: 07/08/24 12:27 07/08/24 12:35 07/08/24 12:35 Temperature 98.8 F 98.8 F Temperature Source Oral Oral Pulse Rate 93 93 Respiratory Rate 14 14 Respiratory Effort Normal Respiratory Pattern Normal Blood Pressure 123/85 H 123/85 H Blood Pressure Mean 97 97 Pulse Ox 97 97 Oxygen Delivery Method Room Air Room Air 07/08/24 13:22 07/08/24 14:03 07/08/24 15:01 Temperature Temperature Source Pulse Rate 105 H 110 H 120 H Respiratory Rate 19 H 15 21 H Respiratory Effort Respiratory Pattern Blood Pressure 127/80 H 146/95 H 124/76 H Blood Pressure Mean 95 112 92 Pulse Ox 98 97 97 Oxygen Delivery Method Room Air Room Air Room Air 07/08/24 16:30 07/08/24 16:32 Temperature 98 F Temperature Source Pulse Rate 104 H 104 H Respiratory Rate 22 H 22 H Respiratory Effort Respiratory Pattern Blood Pressure 118/79 118/79 Blood Pressure Mean 92 92 Pulse Ox 95 95 Oxygen Delivery Method MDM MDM MDM Narrative Medical decision making narrative: Differential diagnosis includes but not limited to vasovagal syncope versus intravascular volume depletion versus dehydration versus other electrolyte abnormality secondary to gastroenteritis. I do not feel he needs CT imaging of the brain, neck, or abdomen as he is having no pain. His wound will be cleansed to see if there is an underlying laceration that requires repair. Patient will be bolused normal saline 1 L intravenously. EKG will be obtained as a cause for cardiogenic syncope. I will check a CBC, CMP, and lipase as well. EKG obtained interpreted by myself independently as sinus tachycardia at 109 bpm without ectopy or acute ST changes. No STEMI. QTc normal at 433 ms. I reviewed his laboratory work and he law (more content not included)... Normal [facility] Lipaseon 2024 Lipase [Catalytic activity/Vol] 43 U/L Normal 13-75 [facility] Comment on above: Result Comment: Avery nava note: LIPASE revised reference range effective 22. New Lipase methodology. Expected to produce lower values than the previous assay method. NEW Reference Range: 13 - 75 U/L Performed By: #### L 100.0100, L501.2450, L500.4050 #### [facility] [address] [place], [address] M100.677on 2024 M100.677 Negative Normal [facility] Comment on above: Performed By: #### M 100.678, M100.677 #### [facility] [address] [place], [address] M100.678on 2024 M100.678 SARS-CoV-2 (COVID 19 ) Negative INFLUENZA A Negative INFLUENZA B Negative RSV PCR Negative Normal [facility] Comment on above: Performed By: #### M 100.678, M100.677 #### [facility] [address] [place], [address] CT CARDIAC SCORING WO IV CON TRASTon 08-26-2023 CT CARDIAC SCORING WO IV CONTRAST Interpreted By: Isauro Saenz, STUDY: CT CARDIAC SCORING WO IV CONTRAST; 08/26/2023 2:20 pm INDICATION: Signs/Symptoms:HYPERCHOLESTE REMIA. COMPARISON: None. ACCESSION NUMBER(S): [id number] ORDERING CLINICIAN: SARA PANIAGUA TECHNIQUE: Using prospective ECG gating, limited CT scan of the chest for evaluation of coronary arteries was performed without intravenous contrast. Coronary calcium scoring was performed according to the method of Agatston. FINDINGS: The score and distribution of calcium in the coronary arteries is as follows: LM: 0. LAD: 0. LCx: 0. RCA: 0. Total: 0. The visualized segments of the lungs are normally expanded. The visualized mid/lower ascending thoracic aorta measures 3.5 cm in diameter. The heart is normal in size. Trace pericardial effusion is present. No gross evidence of mediastinal or hilar lymphadenopathy is identified. Small hypodensity at the hepatic dome too small to characterize but likely benign. IMPRESSION: 1. Coronary artery calcium score of 0*. 2. Additional findings as above. *Coronary artery calcium scoring may be helpful in predicting the risk for future coronary heart disease events. According to the [place] [employer] Clinical Expert Consensus Task Force, such testing provides important prognostic information in patients with more than one coronary heart disease risk factor. The coronary artery calcium score correlates with the annual risk of a non-fatal myocardial infarction or coronary heart disease . Coronary artery score Annual Risk 0-99 0.4% 100-399 1.3% >400 2.4% These three breakpoints correspond to lower, intermediate and high risk states for future coronary events. Such information should be used, along with appropriate clinical judgment, to make decisions regarding the intensity of risk factor management strategies to treat blood lipids and to modify other non-lipid coronary risk factors. Reference: [place] P et al. Circulation. 2007; 115:402-426 MACRO: None Signed by: Isauro Saenz 08/26/2023 5:34 PM Dictation workstation: [id number] [facility] CT for calcium scoring WO co ntrast and CTA W contrast IV Heart and coronary arterieson 08-26-2023 1. Coronary artery c alcium score of 0*. 2. Additional findings as above. *Coronary artery calcium scoring may be helpful in predicting the risk for future coronary heart disease events. According to the [place] [employer] Clinical Expert Consensus Task Force, such testing provides important prognostic information in patients with more than one coronary heart disease risk factor. The coronary artery calcium score correlates with the annual risk of a non-fatal myocardial infarction or coronary heart disease . Coronary artery score Annual Risk 0-99 0.4% 100-399 1.3% >400 2.4% These three breakpoints correspond to lower, intermediate and high risk states for future coronary events. Such information should be used, along with appropriate clinical judgment, to make decisions regarding the intensity of risk factor management strategies to treat blood lipids and to modify other non-lipid coronary risk factors. Reference: [place] P et al. Circulation. 2007; 115:402-426 MACRO: None Signed by: Isauro Saenz 08/26/2023 5:34 PM Dictation workstation: [id number] [facility] Interpreted By: Isauro Carson, STUDY: CT CARDIAC SCORING WO IV CONTRAST; 08/26/2023 2:20 pm INDICATION: Signs/Symptoms:HYPERCHOLESTE REMIA. COMPARISON: None. ACCESSION NUMBER(S): [id number] ORDERING CLINICIAN: SARA PANIAGUA TECHNIQUE: Using prospective ECG gating, limited CT scan of the chest for evaluation of coronary arteries was performed without intravenous contrast. Coronary calcium scoring was performed according to the method of Agatston. FINDINGS: The score and distribution of calcium in the coronary arteries is as follows: LM: 0. LAD: 0. LCx: 0. RCA: 0. Total: 0. The visualized segments of the lungs are normally expanded. The visualized mid/lower ascending thoracic aorta measures 3.5 cm in diameter. The heart is normal in size. Trace pericardial effusion is present. No gross evidence of mediastinal or hilar lymphadenopathy is identified. Small hypodensity at the hepatic dome too small to characterize but likely benign. [facility] Isauro Saenz, DO - 08/26/2023 Interpreted By: Isauro Saenz, STUDY: CT CARDIAC SCORING WO IV CONTRAST; 08/26/2023 2:20 pm INDICATION: Signs/Symptoms:HYPERCHOLESTE REMIA. COMPARISON: None. ACCESSION NUMBER(S): [id number] ORDERING CLINICIAN: SARA PANIAGUA TECHNIQUE: Using prospective ECG gating, limited CT scan of the chest for evaluation of coronary arteries was performed without intravenous contrast. Coronary calcium scoring was performed according to the method of Agatston. FINDINGS: The score and distribution of calcium in the coronary arteries is as follows: LM: 0. LAD: 0. LCx: 0. RCA: 0. Total: 0. The visualized segments of the lungs are normally expanded. The visualized mid/lower ascending thoracic aorta measures 3.5 cm in diameter. The heart is normal in size. Trace pericardial effusion is present. No gross evidence of mediastinal or hilar lymphadenopathy is identified. Small hypodensity at the hepatic dome too small to characterize but likely benign. IMPRESSION: 1. Coronary artery calcium score of 0*. 2. Additional findings as above. *Coronary artery calcium scoring may be helpful in predicting the risk for future coronary heart disease events. According to the [place] [employer] Clinical Expert Consensus Task Force, such testing provides important prognostic information in patients with more than one coronary heart disease risk factor. The coronary artery calcium score correlates with the annual risk of a non-fatal myocardial infarction or coronary heart disease . Coronary artery score Annual Risk 0-99 0.4% 100-399 1.3% >400 2.4% These three breakpoints correspond to lower, intermediate and high risk states for future coronary events. Such information should be used, along with appropriate clinical judgment, to make decisions regarding the intensity of risk factor management strategies to treat blood lipids and to modify other non-lipid coronary risk factors. Reference: Malka P et al. Circulation. 2007; 115:402-426 MACRO: None Signed by: Isauro Saenz 08/26/2023 5:34 PM Dictation workstation: [id number] [facility] Work Phone: Radiology Study observation (narrative) [facility] Work Phone: CT for calcium scoring WO co ntrast and CTA W contrast IV Heart and coronary arteriesOrdered By: Isauro Saenz on 08-26-2023 [facility] Work Phone: 2018 Novel Coronavirus (COVI D-19), With Influenz A and B (87420)Ordered By: Key Entry Operator on 02-26-20202018 Novel Coronavirus (COVID-19), With Influenz A and B (48375) Not detected Normal [facility]; [facility] Work Phone: Comment on above: This nucleic acid am plification test was developed and its performancecharacteristics determined by [employer]. Nucleic acidamplification tests include PCR and TMA. This test has not been FDAcleared or approved. This test has been authorized by FDA under anEmergency Use Authorization (EUA). This test is only authorized forthe duration of time the declaration that circumstances existjustifying the authorization of the emergency use of in vitrodiagnostic tests for detection of SARS-CoV-2 virus and/or diagnosisof COVID-19 infection under section 564(b)(1) of the Act, 21 U.S.C.360bbb-3(b) (1), unless the authorization is terminated or revokedsooner.When diagnostic testing is negative, the possibility of a falsenegative result should be considered in the context of a patient'srecent exposures and the presence of clinical signs and symptomsconsistent with COVID-19. An individual without symptoms of COVID-19and who is not shedding SARS-CoV-2 virus would expect to have anegative (not detected) result in this assay. PATIENT NOT FASTINGP ERFORMED BY: Formerly named [facility] [facility] [id number] This test was develo ped and its performance characteristicsdetermined by [employer]. It has not been cleared or approvedby the Food and Drug Administration. LIPID PANEL (26794)Ordered B y: Sara Paniagua on 03-24-2009 Cholesterol [Mass/Vol] 233 mg/dL Abnormal 100-199 [facility] Work Phone: Comment on above: PATIENT WAS FASTINGP ERFORMED BY: [facility] [facility] [id number] Cholesterol in HDL [Mass/Vol] 34 mg/dL Abnormal [facility] Work Phone: Comment on above: According to ATP-III Guidelines, HDL-C >59 mg/dL is considered anegative risk factor for CHD. PATIENT WAS FASTINGP ERFORMED BY: [facility] Lkw[address]fx[address] MarketingAt[facility] [id number] Cholesterol in LDL [Mass/Vol] 175 mg/dL Abnormal 0-99 [facility] Work Phone: Comment on above: PATIENT WAS FASTINGP ERFORMED BY: [facility] Marketingblin [place] [id number] Cholesterol in LDL/Cholesterol in HDL [Mass ratio] 5.1 {ratio_units} Abnormal 0.0-3.6 [facility] Work Phone: Comment on above: PATIENT WAS FASTINGP ERFORMED BY: [facility] Marketingbl[place] [id number] Cholesterol in VLDL [Mass/Vol] 24 mg/dL Normal 5-40 [facility] Work Phone: Comment on above: PATIENT WAS FASTINGP ERFORMED BY: [facility] [facility] HospitalD[facility] [place] [id number] Triglyceride [Mass/Vol] 122 mg/dL Normal 0-149 [facility] Work Phone: Comment on above: PATIENT WAS FASTINGP ERFORMED BY: [facility] [place] [id number] METABOLIC PANEL, COMPREHENSI VE (24204)Ordered By: Sara Paniagua on 03-24-2009 Albumin [Mass/Vol] 4.9 g/dL Normal 3.5-5.5 [facility] Work Phone: Comment on above: PATIENT WAS FASTINGC linical Information: [id number] PERFORMED BY: CB [facility] [id number] Road[address] [place] [id number] Albumin/Globulin [Mass ratio] 2.0 {ratio} Normal 1.1-2.5 [facility] Work Phone: Comment on above: PATIENT WAS FASTINGC linical Information: [id number] PERFORMED BY: [facility] Lnnxck26[address] RoadDublin [place] [id number] ALP [Catalytic activity/Vol] 77 [iU]/L Normal 25-150 [facility] Work Phone: Comment on above: PATIENT WAS FASTINGC linical Information: [id number] PERFORMED BY: [facility] [id number] [place] [id number] ALP [Catalytic activity/Vol] 77 U/L Normal 25-150 [facility]; [facility] Work Phone: Comment on above: PATIENT WAS FASTINGC linical Information: [id number] PERFORMED BY: [facility] Trdyaf55[address] [place] [id number] ALT [Catalytic activity/Vol] 43 [iU]/L Normal 0-55 [facility] Work Phone: Comment on above: PATIENT WAS FASTINGC linical Information: [id number] PERFORMED BY: CB [facility] Ceuhjb67[address] RoadDublin [place] [id number] ALT [Catalytic activity/Vol] 43 U/L Normal 0-55 [facility]; [facility] Work Phone: Comment on above: PATIENT WAS FASTINGC linical Information: [id number] PERFORMED BY: [facility] Vpzjlt18[address] [place] [id number] AST [Catalytic activity/Vol] 30 [iU]/L Normal 0-40 [facility] Work Phone: Comment on above: PATIENT WAS FASTINGC linical Information: [id number] PERFORMED BY: [facility] Mifnsu74[address] RoadDublin [place] [id number] AST [Catalytic activity/Vol] 30 U/L Normal 0-40 [facility]; [facility] Work Phone: Comment on above: PATIENT WAS FASTINGC linical Information: [id number] PERFORMED BY: CB [facility] Yhtidy45[address] [place] [id number] Bilirubin [Mass/Vol] 0.4 mg/dL Normal 0.1-1.2 [facility] Work Phone: Comment on above: PATIENT WAS FASTINGC linical Information: [id number] PERFORMED BY: [facility] Gsurcr[address] [address]Dublin [place] [id number] Calcium [Mass/Vol] 9.9 mg/dL Normal 8.5-10.6 [facility] Work Phone: Comment on above: PATIENT WAS FASTINGC linical Information: [id number] PERFORMED BY: [facility] [id number] RoadDublin [place] [id number] Chloride [Moles/Vol] 103 mmol/L Normal 97-108 [facility] Work Phone: Comment on above: PATIENT WAS FASTINGC linical Information: [id number] PERFORMED BY: [facility] [id number] Harper RoadDublin [place] [id number] CO2 [Moles/Vol] 23 mmol/L Normal 20-32 [facility] Work Phone: Comment on above: PATIENT WAS FASTINGC linical Information: [id number] PERFORMED BY: [facility] [id number] RoadDublin [place] [id number] Creatinine [Mass/Vol] 1.13 mg/dL Normal 0.76-1.27 [facility] Work Phone: Comment on above: PATIENT WAS FASTINGC linical Information: [id number] PERFORMED BY: [employer]6[address] [place] SystemsAtrium Health [id number] GFR/1.73 sq M predicted among blacks MDRD (S/P/Bld) [Vol rate/Area] mL/min/{1.73_m2} Normal [facility] Work Phone: Comment on above: Note: Persistent red uction for 3 months or more in an eGFR<60 mL/min/1.73 m2 defines CKD. Patients with eGFR values>/=60 mL/min/1.73 m2 may also have CKD if evidence of persistentproteinuria is present. Additional information may be found [email or web address]. PATIENT WAS FASTINGC linical Information: [id number] PERFORMED BY: [employer]6370 [employer] CentresDorothea Dix Hospital [id number] GFR/1.73 sq M.predicted MDRD (S/P/Bld) [Vol rate/Area] mL/min/{1.73_m2} Normal [facility] Work Phone: Comment on above: PATIENT WAS FASTINGC linical Information: [id number] PERFORMED BY: [employer] Quick2LAUNCHDorothea Dix Hospital [id number] Globulin (S) [Mass/Vol] 2.4 g/dL Normal 1.5-4.5 [facility] Work Phone: Comment on above: PATIENT WAS FASTINGC linical Information: [id number] PERFORMED BY: [employer] Jel[address] MarketingAtrium Health [id number] Glucose [Mass/Vol] 97 mg/dL Normal 65-99 [facility] Work Phone: Comment on above: PATIENT WAS FASTINGC linical Information: [id number] PERFORMED BY: [employer] Jelas MarketingAtrium Health [id number] Potassium [Moles/Vol] 4.7 mmol/L Normal 3.5-5.2 [facility] Work Phone: Comment on above: PATIENT WAS FASTINGC linical Information: [id number] PERFORMED BY: [employer] Jelas MarketingAtrium Health [id number] Protein [Mass/Vol] 7.3 g/dL Normal 6.0-8.5 [facility] Work Phone: Comment on above: PATIENT WAS FASTINGC linical Information: [id number] PERFORMED BY: [facility] [id number] [facility] [id number] Sodium [Moles/Vol] 139 mmol/L Normal 135-145 [facility] Work Phone: Comment on above: PATIENT WAS FASTINGC linical Information: [id number] PERFORMED BY: [employer] Ugxwgh[address] Jelas MarketingAtrium Health [id number] Urea nitrogen [Mass/Vol] 22 mg/dL Normal 5- [facility] Work Phone: Comment on above: PATIENT WAS FASTINGC linical Information: [id number] PERFORMED BY: [employer] Tjeinn2557 [facility] [id number] Urea nitrogen/Creatini ne [Mass ratio] 19 mg/mg Normal - [facility] Work Phone: Comment on above: PATIENT WAS FASTINGC linical Information: [id number] PERFORMED BY: [facility] [id number] [facility] [id number] Vital Signs Date Time Vital Sign Value Performing Clinician Facility 03-24-2009 09:48-0500 BMI (Body Mass Index) 28.07 kg/m2 MATTHEW Prince LPN [facility] Work Phone: 03-24-2009 09:48-0500 Body weight 111.59 kg MATTHEW Prince LPN [facility] Work Phone: 03-24-2009 09:48-0500 BP Diastolic 84 mm[Hg] MATTHEW Prince PRODUCTION OPERATIONS MANAGER [facility] Work Phone: Comment on above: Patient Position: Sitting; Cuff Location : Left Arm; Cuff Size: Standard 03-24-2009 09:48-0500 BP Systolic 128 mm[Hg] MATTHEW Prince LPN [facility] Internal Medicine Work Phone: Comment on above: Patient Position: Sitting; Cuff Location : Left Arm; Cuff Size: Standard 03-24-2009 09:48-0500 BSA (Body Surface Area) 2.48 m2 MATTHEW Prince PRODUCTION OPERATIONS MANAGER [facility] Internal Medicine Work Phone: 03-24-2009 09:48-0500 Head Circumference 0 cm Sara Paniagua [facility] Work Phone: 03-24-2009 09:48-0500 Head Occipital-frontal circumference 0 cm MATTHEW Prince PRODUCTION OPERATIONS MANAGER [facility]; [facility] Work Phone: 03-24-2009 09:48-0500 Height 199.39 cm MATTHEW Prince PRODUCTION OPERATIONS MANAGER [facility] Work Phone: 03-24-2009 09:48-0500 Pulse (Heart Rate) 74 /min MATTHEW Prince [facility] Internal Medicine Work Phone: Comment on above: Pattern: Regular 03-24-2009 09:48-0500 Respiratory Rate 16 /min MATTHEW Prince [facility] Internal Medicine Work Phone: Comment on above: Pattern: Unlabored 07-30-2006 08:14-0400 BMI (Body Mass Index) 27.75 kg/m2 MATTHEW Prince [facility] Work Phone: 07-30-2006 08:14-0400 Body Temperature 97.7 [degF] MATTHEW Prince [facility] Internal [facility] Work Phone: Comment on above: Method: Oral 07-30-2006 08:14-0400 Body weight 103.42 kg MATTHEW Prince [facility] Work Phone: 07-30-2006 08:14-0400 BP Diastolic 90 mm[Hg] MATTHEW Prince [facility] Work Phone: Comment on above: Patient Position: Sitting; Cuff Location : Left Arm; Cuff Size: Standard 07-30-2006 08:14-0400 BP Systolic 130 mm[Hg] MATTHEW Prince LPN [facility] Work Phone: Comment on above: Patient Position: Sitting; Cuff Location : Left Arm; Cuff Size: Standard 07-30-2006 08:14-0400 BSA (Body Surface Area) 2.34 m2 MATTHEW Prince LUCAS [facility] Work Phone: 07-30-2006 08:14-0400 Head Circumference 0 cm Sara Paniagua [facility] Work Phone: 07-30-2006 08:14-0400 Head Occipital-frontal circumference 0 cm MATTHEW Prince LUCAS [facility]; [facility] Work Phone: 07-30-2006 08:14-0400 Height 193.04 cm MATTHEW Prince LUCAS [facility] Work Phone: 07-30-2006 08:14-0400 Pulse (Heart Rate) 80 /min MATTHEW Prince PRODUCTION OPERATIONS MANAGER [facility] Work Phone: Comment on above: Pattern: Regular 07-30-2006 08:14-0400 Respiratory Rate 20 /min MATTHEW Prince LPN [facility] Work Phone: Comment on above: Pattern: Unlabored Encounters Encounter Date Encounter Type Care Provider Facility Start: 03-19-[address] [facility] Facility:[facility] Start: 03-12-[address] [facility] Facility:[facility] Start: 2024 End: 2024 Emergency department patient visit [facility] Facility:[facility] Start: 08-26-2023 End: 08-27-2023 ambulatory [facility] Start: 08-26-2023 End: 08-26-2023 Subsequent hospital visit by physician [facility] Comment on above: Pure hypercholestero lemia, unspecified Start: 02-26-2020 End: 02-26-2020 [email or web address] Forensic Sergeant al Medicine Start: 03-24-2009 End: 03-24-2009 [email or web address] Start: 03-24-2009 End: 03-24-2009 Patient encounter status Sara Paniagua MD Work Phone: [facility] Start: 07-30-2006 End: 07-30-2006 Patient encounter procedure Sara Paniagua [facility] Start: 07-30-2006 End: 07-30-2006 Patient encounter status Sara Paniagua MD Work Phone: [facility] Physical examination Key Entry Operator [facility]; [facility] Work Phone: Comment on above: handout for self kimberly t. exam Procedures Date Procedure Procedure Detail Performing Clinician Start: 08-26-2023 CT CARDIAC SCORING W O IV CONTRAST SARA PANIAGUA Start: 08-26-2023 Ct heart no contrast quant eval coronry calcium Sara Paniagua MD Work Phone: Plan of Treatment Date Care Activity Detail Author Start: 2033 RSV patients and/or patients aged 60+ years (1 - 1-dose 60+ series) RSV patients and/or patients aged 60+ years (1 - 1-dose 60+ series) [facility] Start: 01-12-2024 Influenza vaccination Influenza Vaccine (Season Ended) [facility] Start: 2023 Zoster Vaccines (1 of 2) Zoster Vaccines (1 of 2) [facility] Start: 01-11-2023 COVID-19 Vaccine ( season) COVID-19 Vaccine ( season) [facility] Start: 02-26-2020 Iaadiadoo influenza 2019 Novel Coronavirus (COVID-19), With Influenz A and B (30610) [facility] Work Phone: Start: 03-24-2009 Lipoprotein blood bernardo numbers & subclasses LIPOPROTEIN, BLD, BY NMR (76441) [facility]; [facility] Work Phone: Start: 03-24-2009 Protein [Mass/Vol] LIPOPROTEIN, BLD, BY NMR (90039) [facility] Work Phone: Start: 07-30-2006 Provider Instructions for Treatment [facility] Work Phone: Start: 07-30-2006 Lipid panel LIPID PANEL (30680) [facility] Forensic Sergeant al Medicine Work Phone: Start: 1995 DTaP/Tdap/Td Vaccines (1 - Tdap) DTaP/Tdap/Td Vaccines (1 - Tdap) [facility] Start: 1992 Hepatitis B Vaccines (1 of 3 - 19+ 3-dose series) Hepatitis B Vaccines (1 of 3 - 19+ 3-dose series) [facility] Start: 1991 Hepatitis C screening Hepatitis C Screening [facility] Start: 1974 MMR Vaccines (1 of 1 - Standard series) MMR Vaccines (1 of 1 - Standard series) [facility] Start: 1973 HIV screening HIV Screening [facility] Start: 1973 Lipid panel Lipid Panel [facility] Start: 1973 Screening for malignant neoplasm of colon [facility] Start: 1973 Yearly Adult Physical Yearly Adult Physical [facility] Work Phone: [facility]; [facility] Work Phone: Immunizations Immunization Date Immunization Notes Care Provider Mark Anthony romero 07-30-2006 tetanus and diphther ia toxoids, adsorbed, preservative free, for adult use (2 Lf of tetanus toxoid and 2 Lf of diphtheria toxoid) Sara Paniagua [facility] Work Phone: Payers Date Payer Category Payer Self-pay 2022 Unknown 2022 Unknown [id number] Unknown [id number] [id number] [id number] Unknown [id number] [id number] [id number] Unknown [id number] [id number] [id number] Unknown [id number] 2.16.8 [id number] Social History Date Type Detail Facility Alcohol Use Alcohol Use [facility] Work Phone: Comment on above: Drinks beer rarely decaf coffee 1-2 t sodas qd Light 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 Tobacco smoking status NHIS Tobacco smoking consumption unknown [facility] Work Phone: Start: 1975 Sex assigned at Not on file [facility] Work Phone: Gender identity Not on file [facility] Work [facility]: Start: 08-16-2023 End: 08-26-2023 Exposure to SARS-CoV-2 (event) Not sure [facility] Evaluation note Note Date & Type Note Facility Evaluation note Diagnosis Pure hypercholesterolemia, unspecified documented in this encounter [facility] Work Phone: Family History No Family History Records FoundUnknown Family Member Name Dates Details Father Comments:hx. quad. by pass i n 50's surgery 2004, hypertension, hyperlipidemia Status:Active Mother Comments:healthy Status:Active Paternal Grandfather Comments:Hx. heart disease d eceased 2002 Status:Active Paternal Grandmother Comments: of lung cancer , smoke Status:Active Unknown Family Member Name Dates Details Father Comments:hx. quad. by pass i n 50's surgery 2004, hypertension, hyperlipidemia Status:Active Mother Comments:healthy Status:Active Paternal Grandfather Comments:Hx. heart disease d eceased 2002 Status:Active Paternal Grandmother Comments: of lung cancer , smoke Status:Active Reason for Referral Specialty Diagnoses / Procedures Referred By Contac t Referred To Contact Radiology Diagnoses Pure hypercholesterolemia, unspecified Procedures CT cardiac scoring wo IV contrast Sara Paniagua MD [address] [address] Referral ID Status Reason Start Date Expiration Date Visits Requested Visits Authorized [id number] Authorized Perform Procedure 07/22/2023 07/21/2024 1 1 Summary Purpose Advance Directives No Advanced Directives Records FoundNo Advanced Directives Records Found Additional Source Comments Reason for Visit (unrecogniz ed section and content) Specialty Diagnoses / Procedures Referred By Contac t Referred To Contact Radiology Diagnoses Pure hypercholesterolemia, unspecified Procedures CT cardiac scoring wo IV contrast Bonezzi, Sara Clark, MD [address] [facility] [address] [place] [address] Referral ID Status Reason Start Date Expiration Date Visits Requested Visits Authorized [id number] Authorized Perform Procedure 07/22/2023 07/21/2024 1 1 Care Teams (unrecognized sec tion and content) M[employer] 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 This clinical summary was aggregated from multiple sources. Caution should be exercised in using it in the provision of clinical care. This summary normalizes information from multiple sources, and as a consequence, information in this document may materially change the coding, format and clinical context of patient data. In addition, data may be omitted in some cases. CLINICAL DECISIONS SHOULD BE BASED ON THE PRIMARY CLINICAL RECORDS. [employer] provides no warranty or guarantee of the accuracy or completeness of information in this document.
== END | disposition home or self-care (01) ==
LOC: SL 11:12
PROVIDERS: PCP Internal Medicine; Referring Provider Internal Medicine; Visit Provider Internal Medicine
DX: G47.30 Sleep apnea, unspecified (principal)
CPT/HCPCS: 95806